=== PATIENT | male | born 1985 | race Caucasian/White ===

== ENCOUNTER → 2017-09-18 | Outpatient (CLI) | payer OTHER | END | disposition home or self-care (01) | LOC: CDC 14:11 | DX: Z01.810 Encounter for preprocedural cardiovascular examination (principal); K40.90 Unilateral inguinal hernia, without obstruction or gangrene, not specified as recurrent | CPT/HCPCS: 93000 ==

== ENCOUNTER 2017-09-24 05:43 | Day surgery (SDC) | payer OTHER ==
[~2017-09-24] VITALS: Ht 180.3 cm; Wt 97.5 kg
[2017-09-24 06:12] VITALS: BP 121/72
[2017-09-24] MEDS ORDERED: ONDANSETRON HCL8 MG PO (09:57)
[2017-09-24] MEDS ORDERED: COLACE100 MG PO (09:57)
[2017-09-24] MEDS ORDERED: DILAUDID4 MG PO (09:57)
[2017-09-24 11:59] VITALS: BP 118/66
[2017-09-24 13:10] VITALS: BP 109/61
[2017-09-24 15:20] VITALS: BP 116/57
[2017-09-24 17:35] VITALS: BP 128/87
== END 2017-09-24 17:35 | disposition home or self-care (01) ==
LOC: SDC 05:43
PROC: 0YU64JZ Supplement Left Inguinal Region with Synthetic Substitute, Percutaneous Endoscopic Approach (ICD-10-PCS; principal; 2017-09-24)
DX: K40.90 Unilateral inguinal hernia, without obstruction or gangrene, not specified as recurrent (principal); D17.6 Benign lipomatous neoplasm of spermatic cord; F17.210 Nicotine dependence, cigarettes, uncomplicated
CPT/HCPCS: 88304; C1781; J0330; J0690; J1100; J1170; J1885; J2250; J2405; J2710; J3010; Q0175